=== PATIENT | male | born 1955 ===

== ENCOUNTER 2020-12-27 09:35 | Emergency (ER) | payer MEDICARE ==
[~2020-12-27] VITALS: Ht 170.2 cm; Wt 78.0 kg
[2020-12-27 09:45] VITALS: BP 148/85
== END 2020-12-27 12:01 | disposition left against medical advice (07) ==
LOC: ER 09:36
DX: R19.5 Other fecal abnormalities (principal); Z53.21 Procedure and treatment not carried out due to patient leaving prior to being seen by health care provider